=== PATIENT | male | born 1980 | race Hispanic/Latino ===

== ENCOUNTER 2020-12-09 10:48 | Emergency (ER) | payer OTHER ==
[~2020-12-09] VITALS: Ht 172.7 cm; Wt 77.1 kg
[2020-12-09] MEDS ORDERED: PROMETHAZINE HCL 25 MG/ML 1ML AMPULE IM ONE (10:49)
[2020-12-09] MEDS ORDERED: 0.9%NACL 1000ML 1,000 ML IV ONE ×2 (10:49→12:00)
[2020-12-09] MEDS ORDERED: CEFTRIAXONE 1G VIAL IVP ONE (10:49)
[2020-12-09 11:01] VITALS: BP 136/68
[2020-12-09] MEDS ORDERED: PROMETHAZINE HCL 25 MG/ML 1ML AMPULE IM STA (11:56)
[2020-12-09] MEDS ORDERED: CEFTRIAXONE 1G VIAL IVP STA (11:56)
[2020-12-09] MEDS ORDERED: CYCLOBENZAPRINE HCL 10 MG TABLET PO ONE (12:00)
[2020-12-09] MEDS ORDERED: KETOROLAC 30MG VIAL (30MG/ML) IV ONE (12:00)
[2020-12-09 12:14] VITALS: BP 127/70
[2020-12-09 12:18] LABS: BASOPHILS % (AUTO) 0.2 % (0.0-5.0); EOSINOPHILS % (AUTO) 0.7 % (0.0-8.0); HEMATOCRIT 46.1 % (42-54); LYMPHOCYTES % (AUTO) 15.9 % (21.0-51.0); MEAN CORPUSCULAR HEMOGLOBIN 28.1 pg (27.0-33.0); MEAN CORPUSCULAR HGB CONC 33.2 g/dL (32.0-36.0); MEAN CORPUSCULAR VOLUME 84.6 fL (79-99); PLATELET COUNT (AUTO) 198 K/uL (130-400); RED BLOOD CELL COUNT(AUTO) 5.45 MIL/uL (4.50-6.20); RED CELL DISTRIBUTION WIDTH 12.5 % (11.0-15.5); WHITE BLOOD COUNT (AUTO) 4.1 K/uL (4.8-10.8)
[2020-12-09 12:25] LABS: APPEARANCE,URINE Clear (CLEAR); BILIRUBIN,URINE Negative (NEGATIVE); COLOR,URINE Yellow (YELLOW); GLUCOSE, URINE (UA) Negative (NEGATIVE); KETONES,URINE Negative (NEGATIVE); LEUKOCYTE ESTERASE ,URINE Negative (NEGATIVE); NITRATE,URINE Negative (NEGATIVE); OCCULT BLOOD,URINE Negative (NEGATIVE); PROTEIN,URINE Negative (NEGATIVE); UROBILINOGEN,URINE 0.2 mg/dL (0.2-1.0)
[2020-12-09 12:29] LABS: CREATININE 0.8 mg/dL (0.5-1.5)
[2020-12-09 12:34] LABS: ALBUMIN 4.2 g/dL (3.5-5.0); BILIRUBIN,TOTAL 0.3 mg/dL (0.2-1.0)
[2020-12-09] MEDS ORDERED: KETOROLAC 30MG VIAL (30MG/ML) ONE (13:24)
[2020-12-09] MEDS ORDERED: CYCLOBENZAPRINE HCL 10 MG TABLET ONE (13:24)
[2020-12-09] MEDS ORDERED: ACET325C6 PO (14:05)
[2020-12-09] MEDS ORDERED: AMOX-429 PO (14:05)
[2020-12-09 14:41] VITALS: BP 130/74
== END 2020-12-09 14:53 | disposition home or self-care (01) ==
LOC: EDH 10:48
DX: E86.0 Dehydration (principal); H66.92 Otitis media, unspecified, left ear; R51.9 Headache, unspecified; Z98.890 Other specified postprocedural states
CPT/HCPCS: 36415; 71045; 80053; 81003; 85025; 87804 ×2; 96372; 96374; 96375; 99284; J0696; J1885; J2550; J7030